=== PATIENT | female | born 1945 ===

== ENCOUNTER 2019-08-04 07:18 | Emergency (ER) | payer MEDICARE ==
--- NOTE | 2019-08-04 11:11 | Emergency Department Report ---
ED CPR HPI - General Chief Complaint: Cardiac Arrest/CPR Stated Complaint: CARDIAC ARREST Time Seen by Provider: 08/04/19 11:07 Source: EMS Mode of arrival: Stretcher Limitations: Other - History of Present Illness Initial Comments: This is a 74-year-old female who was found in a care facility, I assume chronic respiratory care as she does have a trach. Medics state that she was coded positive. They found her without signs of life. They initiated CPR. By the time of my encounter they have given her 4-5 rounds of epinephrine already. She had no return of spontaneous circulation. Medics stated at some point they noticed a brief run of pulseless V. tach. She arrives at this facility after prolonged CPR with no signs of life. Rhythm is a slow wide complex PEA at about 20 without a pulse. The patient was pronounced DOA. Further resuscitative efforts are obviously futile. Complaint: found unresponsive (Unknown downtime) Place: other ("Care facility") ROSC in the Field: No Associated Injuries: No Treatments Prior to Arrival: epinephrine mgs # (Multiple rounds), other (Tracheostomy airway assist) ED Review of Systems ROS: Stated complaint: CARDIAC ARREST Other details as noted in HPI Comment: Unobtainable due to pts medical conditions ED Past Medical Hx - Past Medical History Additional medical history: Tracheostomy, COVID infection - Social History Substance Use Type: None ED Physical Exam - General Limitations: Physical Limitation, Other (Appears extremely debilitated) General appearance: other (No signs of life) - Head Head exam: Present: atraumatic - Eye Eye exam: Present: scleral icterus - ENT ENT exam: Present: normal exam - Neck Neck exam: Present: other (Tracheostomy) - Respiratory Respiratory exam: Present: other (No respiratory effort) - Cardiovascular Cardiovascular Exam: Present: other (Extremely slow wide-complex) - GI/Abdominal GI/Abdominal exam: Absent: distended - Extremities Exam Extremities exam: Present: other (No acute injury) - Neurological Exam Neurological exam: Present: other (GCS is 3) - Skin Skin exam: Present: warm Critical care attestation.: If time is entered above; I have spent that time in minutes in the direct care of this critically ill patient, excluding procedure time. ED Disposition Clinical Impression: Cardiac arrest Disposition: DC-20 Is pt being admited?: No Does the pt Need Aspirin: No Condition: Stable Referrals: PRIMARY CARE, [Primary Care Provider] - 3-5 Days Time of Disposition: 11:12
--- NOTE | 2019-08-04 16:40 | Death Summary ---
Summary - Providers Date of service: 08/03/19 - summary Date of : 08/04/19 Disposition: 74 YO Female Long-Term Facility Resident at [facility] Nursing [facility] with Chronic Respiratory Failure presented to ED for evaluation. EMS was notified after the patient was found in cardiac arrest. Patient initiated on ACLS protocol and subsequently transported to [facility] for further care and evaluation. Patient seen and evaluated in the emergency department. Lab and imaging studies reviewed. Patient was found to have experienced cardiopulmonary arrest and was treated in accordance with ACLS protocol without return of perfusing cardiac rhythm. Patient was found to have absent heart sounds, absent lung sounds, with dilatation of patient pupils. Patient was without signs of life. Patient was pronounced on arrival. Patient pronounced at 1112hrs. - Final diagnosis (1) Respiratory failure Qualifiers: Respiratory failure complication: unspecified whether with hypoxia or hypercapnia Note: Final diagnosis: (2) Cardiac arrest Note: Final diagnosis:
--- NOTE | 2019-08-04 16:52 | Death Summary ---
Summary - Providers Date of service: 08/04/19 - summary Date of : 08/04/19 Disposition: 4 YO Female [facility] Facility Resident at [facility] with Chronic Respiratory Failure presented to ED for evaluation. EMS was notified after the patient was found in cardiac arrest. Patient initiated on ACLS protocol and subsequently transported to [facility] for further care and evaluation. Patient seen and evaluated in the emergency department. Lab and imaging studies reviewed. Patient was found to have experienced cardiopulmonary arrest and was treated in accordance with ACLS protocol without return of perfusing cardiac rhythm. Patient was found to have absent heart sounds, absent lung sounds, with dilatation of patient pupils. Patient was without signs of life. Patient was pronounced on arrival. Patient pronounced at 0647hrs. - Final diagnosis (1) Respiratory failure Qualifiers: Respiratory failure complication: unspecified whether with hypoxia or hypercapnia Note: Final diagnosis: (2) Cardiac arrest Note: Final diagnosis:
== END 2019-08-04 11:50 ==
LOC: ED 07:18
DX: I46.9 Cardiac arrest, cause unspecified (principal)